=== PATIENT | female | born 1955 | race Caucasian/White ===

== ENCOUNTER 2023-03-23 06:33 | Inpatient (IN) | payer BC, MEDICARE ==
[2023-03-19 10:00] LABS: BASOPHILS % 0.3 % (0.0-1.0); EOSINOPHILS # (AUTO) 0.1 (0.0-0.4); EOSINOPHILS % 1.4 % (0.0-6.0); HEMATOCRIT 45.4 % (34.2-44.1); HEMOGLOBIN 14.9 g/dL (12.0-16.0); LYMPHOCYTES # (AUTO) 2.8 (1.0-3.2); LYMPHOCYTES % 48.6 % (18.0-39.1); MEAN CORPUSCULAR HEMOGLOBIN 30.9 pg (28-32); MEAN CORPUSCULAR HGB CONC 32.8 g/dL (31-35); MEAN CORPUSCULAR VOLUME 94.2 fL (81-99); MONOCYTES # (AUTO) 0.4 (0.2-0.8); MONOCYTES % 6.2 % (4.4-11.3); NEUTROPHILS # (AUTO) 2.5 (2.1-6.9); NEUTROPHILS % 43.3 % (38.7-80.0); PLATELET COUNT 280 x10e3/uL (140-360); RED BLOOD COUNT 4.82 x10e6/uL (3.6-5.1); RED CELL DISTRIBUTION WIDTH 12.9 % (11.7-14.4)
[2023-03-19 10:18] LABS: ANION GAP 15.2 mmol/L (8-16); CREATININE, SERUM 0.95 mg/dL (0.57-1.11); POTASSIUM 4.2 mmol/L (3.5-5.1)
[2023-03-23] VITALS (7 sets, daily range): BP systolic 122–147; BP diastolic 77–93; PULSE 56–86; RESP 16–20; TEMP 97.7–98.7; O2SAT 93–97
[~2023-03-23] VITALS: Ht 152.4 cm; Wt 82.6 kg
[~2023-03-23 06:33] MED LIST: CELEBREX100 MG PO; FAMOTIDINE20 MG PO; FUROSEMIDE40 MG PO; GABAPENTIN300 MG PO; LEVOTHYROXINE112 MCG PO; LIPITOR10 MG PO; METOPROLOL SUCC50 MG PO; POTASSIUM CHLO20 ME1 PO; SERTRALINE HCL100 MG PO
[2023-03-23] MEDS ORDERED: CEFAZOLIN SODIUM 2 GM ONE (06:42)
[2023-03-23] MEDS ORDERED: LACTATED RINGER'S 1,000 ML ONE (06:42)
[2023-03-23] MEDS ORDERED: SCOPOLAMINE 1 MG PATCH ONE (07:42)
[2023-03-23] MEDS ORDERED: BUPIVACAINE 0.25% 30ML SDV ONE (08:18)
[2023-03-23] MEDS ORDERED: HYDROCODONE/APAP 7.5MG-325MG 1 EA TAB PO PRN (08:30)
[2023-03-23] MEDS ORDERED: LACTATED RINGER'S 1,000 ML IV SCH (08:30)
[2023-03-23] MEDS ORDERED: SCOPOLAMINE 1 MG PATCH TOP SCH (08:30)
[2023-03-23] MEDS ORDERED: SUGAMMADEX SODIUM 200 MG/2 ML VIAL IV ONE (09:22)
[2023-03-23] MEDS: FENTANYL CITRATE/PF 100MCG/2 ML INJ ONE ×4 (10:01→10:21)
[2023-03-23] MEDS: ONDANSETRON HCL INJ 2MG/ML 2ML 2 MG/ML VIAL IV PRN ×2 (10:01→17:02)
[2023-03-23] MEDS: PROMETHAZINE HCL (IM) 25 MG/ML VIAL IM ONE ×2 (10:17→10:43)
[2023-03-23] MEDS ORDERED: FENTANYL CITRATE/PF 100MCG/2 ML INJ ONE (12:34)
[2023-03-23] MEDS ORDERED: SEVOFLURANE INHAL SOLN 250 ML PEN BTL ONE (12:50)
[2023-03-23] MEDS ORDERED: LABETALOL HCL 5 MG/ML 20ML VIAL ONE (12:50)
[2023-03-23] MEDS ORDERED: ONDANSETRON HCL INJ 2MG/ML 2ML 2 MG/ML VIAL ONE (12:50)
[2023-03-23] MEDS ORDERED: DEXAMETHASONE SOD PHOS INJ 4 MG/ML SDV ONE (12:50)
[2023-03-23] MEDS ORDERED: POVIDONE IODINE 0.05% 0.05 % ML PO ONE (12:50)
[2023-03-23] MEDS ORDERED: LIDOCAINE HCL 2% LOCAL INJ 5 ML SDV VIAL INJ ONE (12:50)
[2023-03-23] MEDS ORDERED: PROPOFOL IV EMULSION 10 MG/ML 20 ML VIAL ONE (12:50)
[2023-03-23] MEDS ORDERED: ROCURONIUM BROMIDE 10 MG/ML 5ML VIAL IV ONE (12:50)
[2023-03-23] MEDS ORDERED: BUPIVACAINE HCL 0.5% INJ 30 ML VIAL INJ ONE (13:01)
[2023-03-23] MEDS: GABAPENTIN 300 MG CAP PO SCH ×2 (14:58→20:33)
[2023-03-23] MEDS: Morphine 2mg Syringe 2 MG/ML SYR IV PRN ×3 (14:59→20:34)
[2023-03-23] MEDS: LACTATED RINGER'S 1,000 ML IV SCH (20:34)
[2023-03-23] MEDS ORDERED: SERTRALINE HCL 100 MG TAB PO SCH (21:00)
[2023-03-23] MEDS: ENOXAPARIN SOD INJ 40 MG/0.4 ML SYR SC SCH (21:16)
[2023-03-23] MEDS ORDERED: MAGNESIUM HYDROXIDE 30 ML UDC PO ONE (21:30)
[2023-03-23] MEDS ORDERED: BISACODYL 5 MG TAB EC PO ONE (21:30)
[2023-03-24 01:51] VITALS: BP 117/71; PULSE 94; RESP 20; TEMP 98.6; O2SAT 92
[2023-03-24] MEDS: LACTATED RINGER'S 1,000 ML IV SCH (03:33)
[2023-03-24] MEDS: Morphine 2mg Syringe 2 MG/ML SYR IV PRN (03:34)
[2023-03-24 05:17] VITALS: BP 122/65; PULSE 80; RESP 16; TEMP 98.2; O2SAT 94
[2023-03-24] MEDS ORDERED: LEVOTHYROXINE SODIUM 100 MCG TAB PO SCH (06:00)
[2023-03-24 06:15] LABS: BASOPHILS % 0.1 % (0.0-1.0); HEMATOCRIT 37.9 % (34.2-44.1); HEMOGLOBIN 12.3 g/dL (12.0-16.0); LYMPHOCYTES # (AUTO) 2.2 (1.0-3.2); LYMPHOCYTES % 24.8 % (18.0-39.1); MEAN CORPUSCULAR HGB CONC 32.5 g/dL (31-35); MEAN CORPUSCULAR VOLUME 95.5 fL (81-99); MONOCYTES # (AUTO) 0.7 (0.2-0.8); MONOCYTES % 7.9 % (4.4-11.3); NEUTROPHILS # (AUTO) 5.9 (2.1-6.9); NEUTROPHILS % 66.7 % (38.7-80.0); PLATELET COUNT 279 x10e3/uL (140-360); RED BLOOD COUNT 3.97 x10e6/uL (3.6-5.1); RED CELL DISTRIBUTION WIDTH 13.2 % (11.7-14.4)
[2023-03-24 06:50] LABS: ALBUMIN 3.8 g/dL (3.5-5.0); ALBUMIN/GLOBULIN RATIO 1.4 (0.8-2.0); ANION GAP 13.3 mmol/L (8-16); CALCIUM 9.1 mg/dL (8.4-10.2); CREATININE, SERUM 0.78 mg/dL (0.57-1.11); MAGNESIUM 1.8 MG/DL (1.3-2.1); POTASSIUM 3.3 mmol/L (3.5-5.1)
[2023-03-24 06:51] VITALS: PULSE 74; RESP 18; O2SAT 98
[2023-03-24 07:11] LABS: PHOSPHORUS 2.6 MG/DL (2.3-4.7)
[2023-03-24] MEDS ORDERED: SENNOSIDES 8.6 MG TAB PO SCH (07:30)
[2023-03-24] MEDS ORDERED: BISACODYL 10 MG SUPP PR ONE (07:30)
[2023-03-24 08:26] VITALS: BP 142/72; PULSE 82; RESP 18; TEMP 98.2; O2SAT 98
[2023-03-24] MEDS: GABAPENTIN 300 MG CAP PO SCH (08:49)
[2023-03-24] MEDS: ENOXAPARIN SOD INJ 40 MG/0.4 ML SYR SC SCH (08:50)
[2023-03-24 08:57] VITALS: BP 142/72; PULSE 82; RESP 18; TEMP 98.2; O2SAT 98
[2023-03-24] MEDS ORDERED: FAMOTIDINE 20 MG TAB PO SCH (09:00)
[2023-03-24] MEDS ORDERED: POTASSIUM CHLORIDE 20 MEQ TAB CR PO SCH (09:00)
[2023-03-24] MEDS ORDERED: METOPROLOL SUCCINATE 50 MG TAB XL PO SCH (09:00)
[2023-03-24] MEDS ORDERED: POTASSIUM CHLORIDE 10MEQ EA PO ONE (09:00)
== END 2023-03-24 10:43 | disposition home or self-care (01) | DRG 620 ==
LOC: OR 06:33 → PACU V 08:31 → MED/SURG3 11:05
PROVIDERS: ADMIT Internal Medicine; ATTEND Internal Medicine
PROC: 0BQT4ZZ Repair Diaphragm, Percutaneous Endoscopic Approach (ICD-10-PCS; 2023-03-23)
PROC: 0DB64Z3 Excision of Stomach, Percutaneous Endoscopic Approach, Vertical (ICD-10-PCS; principal; 2023-03-23 08:20)
DX: E66.01 Morbid (severe) obesity due to excess calories (principal); I50.32 Chronic diastolic (congestive) heart failure; Z68.36 Body mass index [BMI] 36.0-36.9, adult; K44.9 Diaphragmatic hernia without obstruction or gangrene; G47.33 Obstructive sleep apnea (adult) (pediatric); I11.0 Hypertensive heart disease with heart failure; K21.9 Gastro-esophageal reflux disease without esophagitis; I25.9 Chronic ischemic heart disease, unspecified; I25.10 Atherosclerotic heart disease of native coronary artery without angina pectoris; K59.09 Other constipation
CPT/HCPCS: 0223U; 36415; 71046; 80048; 80053; 83735; 84100; 85025; 93005; 94799; J1100; J1650; J2001; J2270; J2405; J2550